=== PATIENT | female | born 1985 | race Two or more races ===

== ENCOUNTER 2018-07-30 01:07 | Emergency (ER) | payer SELFPAY ==
[~2018-07-30] VITALS: Ht 162.6 cm; Wt 49.9 kg
[2018-07-30 02:04] VITALS: BP 142/91
[2018-07-30] MEDS ORDERED: KETOROLAC 15 MG/ML VIAL. IM ONE (02:45)
--- NOTE | 2018-07-30 03:18 | RAD ---
Left wrist 3 views 07/30/2018. Reason for exam: Pain and swelling. No history of injury is given. No fracture or dislocation is seen. There is no apparent joint narrowing or destructive process. IMPRESSION: No apparent abnormality. Electronically signed by: Chandrakant Chi Jr., MD (07/30/2018 3:14 AM) [facility]
--- NOTE | 2018-07-30 03:32 | RAD ---
Ultrasound venous system of the left upper extremity 07/30/2018. Reason for exam: Arm and hand pain and swelling. Possible DVT. Color Doppler and spectral waveform analysis was performed along with real-time grayscale technique. The deep veins of the left upper extremity show normal Doppler flow and augmentation of flow and are normally compressible in their accessible segments. The basilic and cephalic veins also appear patent, as do the radial and ulnar veins in the forearm and the internal jugular vein in the neck. IMPRESSION: No evidence of venous thrombosis. Electronically signed by: Chandrakant Chi Jr., MD (07/30/2018 3:28 AM) [facility]
[2018-07-30] MEDS ORDERED: MELO7.5T29 PO (03:37)
[2018-07-30] MEDS ORDERED: TRAM50TA PO (03:37)
--- NOTE | 2018-07-30 03:38 | PHYS DOC ---
Past Medical History Past Medical History: Kidney Stone, UTI Past Surgical History: No Surgical History Alcohol Use: Occasionally Drug Use: None Adult General Chief Complaint Chief Complaint: UPPER EXTREMITY INJURY HPI HPI Patient is a 33 year old female who presents with left arm pain and swelling localized to the wrist. This is been present for the past one to 2 weeks. No trauma. Reports numbness in all 5 fingers. Increased pain with movement. No trauma. No known DVT/PE risk factors. No difficulty breathing. Nothing seems to make the discomfort better or worse except movement, Makes it worse. [] Review of Systems Review of Systems Constitutional: Denies fever or chills [] Eyes: Denies change in visual acuity, redness, or eye pain [] HENT: Denies nasal congestion or sore throat [] Respiratory: Denies cough or shortness of breath [] Cardiovascular: No chest pain or palpitations[] GI: Denies abdominal pain, nausea, vomiting, bloody stools or diarrhea [] : Denies dysuria or hematuria [] Musculoskeletal: See history of present illness[] Integument: Denies rash or skin lesions [] Neurologic: Denies headache, focal weakness or sensory changes [] Endocrine: Denies polyuria or polydipsia [] All other systems were reviewed and found to be within normal limits, except as documented in this note. Current Medications Current Medications Current Medications Medications (Trade) Dose Ordered Sig/Heaven Start Time Stop Time Status Last Admin Dose Admin Ketorolac Tromethamine (Toradol 15mg Vial) 15 mg 1X ONCE 07/30/18 02:45 07/30/18 02:46 DC 07/30/18 02:52 15 MG Allergies Allergies Allergies Coded Allergies Type Severity Reaction Last Updated Verified No Known Drug Allergies 07/30/18 No Physical Exam Physical Exam Constitutional: Well developed, well nourished, no acute distress, non-toxic appearance. [] HENT: Normocephalic, atraumatic, bilateral external ears normal, oropharynx moist, no oral exudates, nose normal. [] Eyes: PERRLA, EOMI, conjunctiva normal, no discharge. [] Neck: Normal range of motion, no tenderness, supple, no stridor. [] Cardiovascular:Heart rate regular rhythm, no murmur [] Lungs & Thorax: Bilateral breath sounds clear to auscultation [] Abdomen: Bowel sounds normal, soft, no tenderness, no masses, no pulsatile masses. [] Skin: Warm, dry, no erythema, no rash. [] Back: No tenderness, no CVA tenderness. [] Extremities: Tenderness is present in the left wrist region diffusely, no snuffbox tenderness, full active range of motion, no significant edema is appreciated when compared to the right side, 2 point discrimination is less than 5 mm, FDS, FDP, extensor mechanisms as well as opposition is all intact.[] Neurologic: Alert and oriented X 3, normal motor function, normal sensory function, no focal deficits noted. [] Psychologic: Affect normal, judgement normal, mood normal. [] Current Patient Data Vital Signs Vital Signs Date Time Temp Pulse Resp B/P (MAP) Pulse Ox O2 Delivery O2 Flow Rate FiO2 07/30/18 02:04 97.6 87 20 142/91 (108) 99 Room Air 97.6 EKG EKG [] Radiology/Procedures Radiology/Procedures X-ray of the left wrist is negative Ultrasound of the left upper extremity is negative for evidence of a DVT[] Course & Med Decision Making Course & Med Decision Making Pertinent Labs and Imaging studies reviewed. (See chart for details) ED course: Patient arrived, was placed in bed, tolerated exam well. After return of the imaging findings these were discussed with the patient who voiced understanding. All questions were answered. Patient was discharged in improved condition. Medical decision making: There is no evidence of fracture, dislocation, neurovascular compromise, DVT, nor infectious process.[] Dragon Disclaimer Dragon Disclaimer This electronic medical record was generated, in whole or in part, using a voice recognition dictation system. Departure Departure Impression: Primary Impression: Left wrist pain Disposition: 01 HOME, SELF-CARE Condition: GOOD Referrals: NO PCP (PCP) Patient Instructions: Wrist Pain Additional Instructions: Follow-up with your regular doctor. If you do not have regular doctor list of local low-cost clinics will be provided for you. Return to the ER if worsening pain or any other concerns. Scripts Tramadol Hcl (TRAMADOL HCL) 50 Mg Tablet 50 MG PO Q6HRS PRN for PAIN, #20 TAB Prov: CARLYLE LARA DO 07/30/18 Meloxicam (MELOXICAM) 7.5 Mg Tablet 7.5 MG PO DAILY, #20 TAB Prov: CARLYLE LARA DO 07/30/18 CARLYLE LARA DO Jul 30, 2018 03:38
== END 2018-07-30 03:48 | disposition home or self-care (01) ==
LOC: ER 01:07
DX: M25.532 Pain in left wrist (principal); M79.89 Other specified soft tissue disorders
CPT/HCPCS: 73110; 93971; 96372; 99284; J1885

== ENCOUNTER 2020-03-28 19:41 | Inpatient (IN) | payer SELFPAY ==
[~2020-03-28] VITALS: Ht 147.3 cm; Wt 64.0 kg
[~2020-03-28 19:41] MED LIST: MELO7.5T29 PO; TRAM50TA PO
[2020-03-28] MEDS ORDERED: BUTORPHANOL 2 MG/ML VIAL. IVP PRN (20:00)
[2020-03-28] MEDS ORDERED: fentaNYL PF VIAL 100 MCG/2 ML VIAL IVP PRN (20:00)
[2020-03-28] MEDS ORDERED: 0.9 % SODIUM CHLORIDE 10 ML DISP.SYRIN. IV PRN (20:00)
[2020-03-28] MEDS ORDERED: ONDANSETRON PF 4 MG/2 ML VIAL. IVP PRN (20:00)
[2020-03-28] MEDS ORDERED: CITRIC ACID/SODIUM CITRATE 30 ML SOLUTION. PO PRN (20:00)
[2020-03-28] MEDS ORDERED: LIDOCAINE 1% PF 30 ML VIAL. INJ PRN (20:00)
[2020-03-28] MEDS ORDERED: ACETAMINOPHEN 325 MG TABLET. PO PRN (20:00)
[2020-03-28] MEDS ORDERED: OXYTOCIN 30 UNIT/500 ML PREMIX 500 ML IV PRN (20:00)
[2020-03-28] MEDS ORDERED: IBUPROFEN 400 MG TABLET. PO PRN (20:00)
[2020-03-28] MEDS ORDERED: TERBUTALINE 1 MG/ML VIAL. SQ PRN (20:00)
--- NOTE | 2020-03-28 20:00 | NUR ---
Scheduled with [facility] 03/28/20, 40 weeks gestation presents for an induction.
[2020-03-28] MEDS ORDERED: DINOPROSTONE 10 MG SUPP.VAG VG ONE (20:30)
[2020-03-28 20:45] LABS: BASO # 0.1 x10^3/uL (0.0-0.2); BASO % 1 % (0-3); EOS % 0 % (0-3); HEMATOCRIT 35.3 % (36.0-47.0); HEMOGLOBIN 11.9 g/dL (12.0-15.5); LYMPH # 1.5 x10^3/uL (1.0-4.8); LYMPH % 30 % (24-48); MEAN CORPUSCULAR HEMOGLOBIN 28 pg (25-35); MEAN CORPUSCULAR HGB CONC 34 g/dL (31-37); MEAN CORPUSCULAR VOLUME 83 fL (79-100); MONO # 0.3 x10^3/uL (0.0-1.1); MONO % 6 % (0-9); NEUT # 3.1 x10^3/uL (1.8-7.7); NEUT % 62 % (31-73); PLATELET COUNT 174 x10^3/uL (140-400); RED BLOOD COUNT 4.26 x10^6/uL (3.50-5.40)
[2020-03-28] MEDS: IV RINGERS,LACTATED 1000ML 1,000 ML IV SCH (20:52)
[2020-03-29] VITALS (30 sets, daily range): BP systolic 75–142; BP diastolic 48–87
[2020-03-29] MEDS ORDERED: PENICILLIN G K 5,000,000 UNIT in IV DEXTROSE 5% 100ML 100 ML IV ONE (04:30)
[2020-03-29] MEDS ORDERED: OXYTOCIN PREMIX 30 UNIT/500 ML NS BAG. IV ONE (06:00)
[2020-03-29] MEDS ORDERED: OXYTOCIN 30 UNIT/500 ML PREMIX 500 ML IV PRN ×2 (06:00→08:15)
[2020-03-29] MEDS ORDERED: SUCCINYLCHOLINE 200 MG/10 ML VIAL. ONE (06:39)
[2020-03-29] MEDS ORDERED: PHENYLEPHRINE in 0.9% NACL PF 1 MG/10 ML SYRINGE. IV ONE (06:39)
[2020-03-29] MEDS ORDERED: ePHEDrine PF IN SALINE 50 MG/10 ML SYRINGE. IV ONE (06:39)
[2020-03-29] MEDS ORDERED: PROPOFOL 10 MG/ML (20ML) VIAL. IV ONE (06:39)
[2020-03-29] MEDS ORDERED: fentaNYL PF VIAL 100 MCG/2 ML VIAL ONE (06:40)
[2020-03-29] MEDS ORDERED: ceFAZolin 2GM PREMIX 2 GM/50 ML BAG IV ONE (07:00)
[2020-03-29] MEDS ORDERED: MORPHINE SULFATE 10 MG/ML VIAL. ONE (07:15)
[2020-03-29] MEDS ORDERED: 0.9 % SODIUM CHLORIDE 20 ML VIAL. IJ ONE (07:16)
--- NOTE | 2020-03-29 07:48 | PDOC1 ---
OB - History Hx of Present Care: Good Care Ultrasounds: Normal mid trimester US Obstetrical Complications: None Medical Complications: None Other Concerns: GBS positive and Covid positive Past Family/Social History * Past Medical, Surgical, Family and Obstetric Histories reviewed from chart. Rubella: Immune RPR/VDRL: Negative GBS Status: Positive HBsAG: Negative OB - Chief Complaint & HPI Date of Admission: Date of Admission: Mar 28, 2020 at 19:41 Chief Complaint/History : 2 Para: 1 EGA: 39 Reason for admission: induction of labor Indication for induction: maternal discomfort Admission Nurse Assessment Rev: Yes OB - Admission Exam Physical Exam Vitals: VS - Last 72 Hours, by Label Date Time Temp Pulse Resp B/P (MAP) Pulse Ox O2 Delivery O2 Flow Rate FiO2 03/29/20 06:45 85 134/86 HEENT: Normal Heart: Regular Rate Lungs: Clear Abdomen: Gravid, Non tender, Soft Extremities: Edema Reflexes: Normal Cervical Dilatation: Fingertip Effacement: 25% Station: -3 Membranes: Intact Heart Rate: Normal Accelerations: Accelerations Present Decelerations: No decelerations Contractions on Admission: None Text A: 40 wks IUP GBS positive Covid positive P: IOL cervidil, then pitocin in am. JOCELYN SMITH Jr, MD Mar 29, 2020 07:47
[2020-03-29] MEDS ORDERED: IV NORMAL SALINE 1000ML BAG 1,000 ML IV SCH (08:04)
--- NOTE | 2020-03-29 08:04 | PDOC4 ---
OB Operative Note Date: Mar 29, 2020 PRE OP DIAGNOSIS: NRFHT OPERATION PERFORMED: [facility] Surgeon Dr. Varela Anesthesia: Gen Blood Loss 900 ml Specimen placenta and infant OB Findings: Position (Vertex), Sex (Male), (8/9), Weight (2375 Gram) Complications none JOCELYN VARELA Jr, MD Mar 29, 2020 08:04
[2020-03-29] MEDS ORDERED: ZOLPIDEM 5 MG TABLET. PO PRN (08:15)
[2020-03-29] MEDS ORDERED: diphenhydrAMINE ORAL ELIXIR 12.5 MG/5 ML ML PO PRN (08:15)
[2020-03-29] MEDS ORDERED: 0.9 % SODIUM CHLORIDE 10 ML DISP.SYRIN. IV PRN (08:15)
[2020-03-29] MEDS ORDERED: ONDANSETRON PF 4 MG/2 ML VIAL. IV PRN (08:15)
[2020-03-29] MEDS ORDERED: NALOXONE 0.4 MG/ML VIAL. IV PRN (08:15)
[2020-03-29] MEDS ORDERED: IBUPROFEN 400 MG TABLET. PO PRN (08:15)
[2020-03-29] MEDS ORDERED: DOCUSATE SODIUM 100 MG CAPSULE. PO PRN (08:15)
[2020-03-29] MEDS ORDERED: MAG HYDROX/ALUMINUM HYD/SIMETH 30 ML ORAL.SUSP PO PRN (08:15)
[2020-03-29] MEDS ORDERED: SIMETHICONE 80 MG TAB.CHEW PO PRN (08:15)
[2020-03-29] MEDS ORDERED: PENICILLIN G K 2,500,000 UNIT in IV DEXTROSE 5% 50 ML IV SCH (08:30)
[2020-03-29] MEDS ORDERED: PRENATAL MULTIVITAMIN TABLET. PO SCH (09:00)
--- NOTE | 2020-03-29 10:13 | OP ---
DATE OF SURGERY: PREOPERATIVE DIAGNOSES: 1. Forty weeks' intrauterine . 2. Induction of labor secondary to post-term. 3. GBS positive. 4. COVID positive. 5. intolerance to labor. POSTOPERATIVE DIAGNOSES: 1. Forty weeks' intrauterine . 2. Induction of labor secondary to post-term. 3. GBS positive. 4. COVID positive. 5. intolerance to labor. PROCEDURE: Primary low transverse section. SURGEON: Jocelyn Varela MD ANESTHESIA: GETA. ESTIMATED BLOOD LOSS: 900 mL. COMPLICATIONS: None. FINDINGS: Viable male infant, Apgars 8 and 9, weight 2375 grams. Three-vessel cord placenta delivered manually. Mild uterine atony, which 800 mcg of Cytotec placed intrauterine. SUMMARY: A 34-year-old 2, para 1 at 40 weeks, presented for induction of labor secondary to post-term. With Cervidil in place, the patient had 2 bradycardic episodes which the Cervidil was removed. The patient then began having repetitive decelerations, which she required emergent section. She was counseled on the risks, benefits and expectations and voiced clear understanding to proceed. DESCRIPTION OF PROCEDURE: The patient was taken to surgery suite, placed in dorsal supine position. She was prepped with ChloraPrep and draped in sterile fashion. After adequate anesthesia, Pfannenstiel skin incision was made with scalpel down to and through the fascia. Fascia was extended laterally using curved Lennon scissors. The superior edge of the fascia was grasped with 2 Saurabh clamps, dissected free of the abdominal rectus muscles using blunt dissection along with curved Lennon scissors. The same process took place inferiorly. Abdominal rectus muscles were dissected bluntly at the midline. Peritoneum was grasped with 2 hemostats and entered sharply with Metzenbaum scissors. Incision was extended superiorly as well as inferiorly. The Real ring retractor was placed. Low transverse hysterotomy incision was made with scalpel down to and through the amniotic sac. Hysterotomy incision was extended laterally and superiorly digitally. With the aid of fundal pressure, the 's head was delivered in a smooth atraumatic manner. With additional fundal pressure, the anterior shoulder was delivered followed by posterior shoulder and rest of male was delivered. The infant was suctioned with bulb syringe orally and nasally, umbilical cord was clamped twice and cut and viable male was handed to waiting nursing staff. Umbilical cord was then obtained along with arterial pH. Three-vessel cord placenta was delivered manually intact. The uterus was then exteriorized and cleared of clot and debris with a moist lap. Hysterotomy incision was reapproximated using #1 Vicryl suture in running locked fashion and imbricated layer of #1 Vicryl suture was utilized for better hemostasis in a running fashion. 800 mcg of Cytotec was placed intrauterine prior to closure of the hysterotomy incision. The uterus then palpated firm. Fallopian tubes and ovaries appeared normal bilaterally. Posterior cul-de-sac was cleared of clot and debris with moist lap. The uterus was then returned to the abdomen. The pericolic gutters were cleared of clot and debris with moist lap. Hysterotomy incision was reviewed and was hemostatic. The Real ring retractor was removed. The peritoneum was reapproximated using #1 Vicryl suture in running fashion. Abdominal rectus muscles were reapproximated using #1 Vicryl suture in an interrupted fashion. Fascia was reapproximated using 0 Vicryl suture in running fashion. Skin was reapproximated using 4-0 Vicryl suture in subcuticular manner. The patient tolerated the procedure well and was taken to recovery room in stable condition. Sponge and needle count correct x 3. JOCELYN VARELA MD DR: LOREN/winsome JOB#: [id number] / [id number]
[2020-03-29] MEDS: IV RINGERS,LACTATED 1000ML 1,000 ML IV SCH ×2 (10:48→12:10)
--- NOTE | 2020-03-29 11:50 | NUR ---
At approximately 1150 this am, this RN called and informed him of pt. VS, urine output, pain, and comfort. MD gave orders for this RN to get a STAT H&H, flush and re-adjust blake catheter if needed, and administer 30mg of IV Toradol.
[2020-03-29 12:14] LABS: HEMATOCRIT 24.2 % (36.0-47.0); HEMOGLOBIN 7.9 g/dL (12.0-15.5); RED BLOOD COUNT 2.85 x10^6/uL (3.50-5.40); RED CELL DISTRIBUTION WIDTH 14.6 % (11.5-14.5); WHITE BLOOD COUNT 13.6 x10^3/uL (4.0-11.0)
--- NOTE | 2020-03-29 12:15 | NUR ---
At approximately 1215 this RN spoke with MD about pt. VS, urine output, fundal assessment, fluid intake, and pain. Orders received to give another IV BOLUS of 500ml.
[2020-03-29] MEDS: KETOROLAC 30 MG/ML VIAL. IV PRN (12:16)
--- NOTE | 2020-03-29 12:25 | NUR ---
At approximately 1225 this RN called MD to inform him of VS, pain, and H&H lab results. Orders received to stop fluid bolus and run IV fluids TKO. Orders received to administer 2 units of PRBC.
--- NOTE | 2020-03-29 14:30 | NUR ---
At approximately 1430 MD called for update on pt. MD updated on pt. VS, fundal assessment, urine output, pain, and blood transfusion start. Orders received to repeat STAT H&H 4 hours after second bag of PRBC is infused.
--- NOTE | 2020-03-29 16:08 | NUR ---
At approximately 1608 MD called about pt. assessment, VS, abdominal distention, pain, urine output, fundal assessment, and blood transfusion status. Orders received to bladder scan pt. and replace blake catheter.
--- NOTE | 2020-03-29 16:40 | NUR ---
At approximately 1640 MD came to pt. room for update. MD updated on bladder scan reading of 199ml, blake catheter replacement, and urine output. At this time MD also updated on pt. assessment including abdomen, VS, pain, bleeding and fundal assessment. Orders received for STAT CT of abd/pelvis with contrast.
[2020-03-29] MEDS ORDERED: FERROUS SULFATE 325 MG TABLET. PO SCH (17:00)
--- NOTE | 2020-03-29 17:00 | NUR ---
informed of CT scan results.
[2020-03-29] MEDS ORDERED: IOHEXOL 300 MG/ML 100ML VIAL. IV ONE (17:30)
--- NOTE | 2020-03-29 17:50 | NUR ---
Pt. taken to CT via bed with 2 RN assist.
--- NOTE | 2020-03-29 18:25 | NUR ---
MD in room to assess pt. after CT scan. Orders received for STAT H&H.
--- NOTE | 2020-03-29 18:40 | RAD ---
Exam: CT of abdomen and pelvis without and with contrast INDICATION: Postop, abdominal distention TECHNIQUE: Sequential axial images through the abdomen and pelvis obtained before and after the administration of 75 mL of Omni 300 IV contrast. Arterial and venous phase were obtained. Sagittal and coronal reformatted images were reconstructed from the axial data and reviewed. Comparisons: None FINDINGS: Heart size is normal. No pericardial effusion. Trace bilateral pleural effusions. Otherwise, visualized lung bases are clear. Liver, spleen, pancreas, gallbladder and adrenals are unremarkable. No perinephric inflammation or hydronephrosis. Kidneys demonstrate symmetric enhancement. No renal or ureteral calculi are identified. Bladder is decompressed not well evaluated. Uterus is enlarged with a post gravid appearance. There is fluid and debris noted within the endometrial cavity. Small to moderate amount of hemorrhage is noted within the anterior peritoneum of the pelvis. No evidence for active extravasation is identified. Hematoma measures approximately 13 cm in craniocaudal dimension and approximately 12.4 x 5.5 cm in greatest axial dimension. There is a small amount of free air noted within the abdomen. Small amount of free fluid is noted predominantly in the right paracolic gutter. Large and small bowel are unremarkable. Appendix is normal. No obstruction. Abdominal aorta has a normal course and caliber. Abdominal vasculature is patent. No enlarged abdominal lymph nodes are identified. IMPRESSION: 1. Moderate amount of hemorrhage noted in the anterior peritoneum measuring approximately 12.5 x 5.5 x 13 cm. No active extravasation is identified. 2. Post gravid appearance of the uterus with fluid and air noted within the endometrial cavity. This may be within normal limits given recent . Consider follow-up imaging with ultrasound to ensure resolution. 3. Small amount of free air seen in the abdomen. This is likely within normal limits for recent surgery. No inflammatory changes of bowel to suggest bowel perforation or injury. Exposure: One or more of the following in the visualized dose reduction techniques were utilized for this examination: 1. Automated exposure control 2. Adjustment of the MA and/or KV according to patient size 3. Use of iterative of reconstructive technique FOR INTERNAL CODING PURPOSES Critical result: Findings discussed with Danielle Choudhary RN at 03/29/2020 6:31 PM. RESULT CODE: (C) Electronically signed by: Ciara Turpin MD (03/29/2020 6:37 PM) [id number]
[2020-03-29 18:56] LABS: HEMATOCRIT 27.8 % (36.0-47.0); HEMOGLOBIN 9.4 g/dL (12.0-15.5); RED BLOOD COUNT 3.21 x10^6/uL (3.50-5.40); RED CELL DISTRIBUTION WIDTH 16.8 % (11.5-14.5); WHITE BLOOD COUNT 14.4 x10^3/uL (4.0-11.0)
[2020-03-29 19:54] LABS: CALCIUM 7.9 mg/dL (8.5-10.1); GFR 64.3; POTASSIUM 4.7 mmol/L (3.5-5.1)
[2020-03-29 20:00] LABS: ALBUMIN 1.8 g/dL (3.4-5.0); ALBUMIN/GLOBULIN RATIO 0.6 (1.0-1.7); TOTAL BILIRUBIN 0.4 mg/dL (0.2-1.0)
--- NOTE | 2020-03-29 21:50 | NUR ---
Used language line to answer questions from patient. At this time she complained of uncontrolled pain. Gave patient a bolus dose on her drapery hand. Patient communicated that it brought her pain down to a 2. Patient is resting in bed. Nurse is bedside.
[2020-03-30 01:22] VITALS: BP 120/86
[2020-03-30 01:23] LABS: HEMATOCRIT 29.2 % (36.0-47.0); HEMOGLOBIN 10.3 g/dL (12.0-15.5); RED BLOOD COUNT 3.41 x10^6/uL (3.50-5.40); RED CELL DISTRIBUTION WIDTH 15.6 % (11.5-14.5); WHITE BLOOD COUNT 9.6 x10^3/uL (4.0-11.0)
[2020-03-30 01:34] LABS: CALCIUM 7.6 mg/dL (8.5-10.1); GFR 64.3; POTASSIUM 4.1 mmol/L (3.5-5.1)
[2020-03-30] MEDS: KETOROLAC 30 MG/ML VIAL. IV PRN ×2 (01:34→15:10)
[2020-03-30 05:48] VITALS: BP 105/67
[2020-03-30 05:49] LABS: BASO % 0 % (0-3); EOS % 0 % (0-3); HEMATOCRIT 28.3 % (36.0-47.0); HEMOGLOBIN 9.7 g/dL (12.0-15.5); LYMPH % 23 % (24-48); MEAN CORPUSCULAR HEMOGLOBIN 30 pg (25-35); MEAN CORPUSCULAR HGB CONC 34 g/dL (31-37); MEAN CORPUSCULAR VOLUME 87 fL (79-100); MONO # 0.5 x10^3/uL (0.0-1.1); MONO % 6 % (0-9); NEUT # 6.3 x10^3/uL (1.8-7.7); NEUT % 71 % (31-73); PLATELET COUNT 168 x10^3/uL (140-400); RED BLOOD COUNT 3.26 x10^6/uL (3.50-5.40); RED CELL DISTRIBUTION WIDTH 15.7 % (11.5-14.5); WHITE BLOOD COUNT 8.9 x10^3/uL (4.0-11.0)
--- NOTE | 2020-03-30 11:47 | PDOC ---
OB Progress Note Date of Service 03/29/20 Time of Evaluation 1145 Notes Pt. feeling better. Pain better controlled. Hematoma stable. Lab Laboratory Tests Test 03/28/20 20:30 03/28/20 20:50 03/29/20 11:58 03/29/20 18:39 White Blood Count 5.0 x10^3/uL (4.0-11.0) 13.6 x10^3/uL (4.0-11.0) 14.4 x10^3/uL (4.0-11.0) Red Blood Count 4.26 x10^6/uL (3.50-5.40) 2.85 x10^6/uL (3.50-5.40) 3.21 x10^6/uL (3.50-5.40) Hemoglobin 11.9 g/dL (12.0-15.5) 7.9 g/dL (12.0-15.5) 9.4 g/dL (12.0-15.5) Hematocrit 35.3 % (36.0-47.0) 24.2 % (36.0-47.0) 27.8 % (36.0-47.0) Mean Corpuscular Volume 83 fL (79-100) 85 fL (79-100) 87 fL (79-100) Mean Corpuscular Hemoglobin 28 pg (25-35) 28 pg (25-35) 29 pg (25-35) Mean Corpuscular Hemoglobin Concent 34 g/dL (31-37) 33 g/dL (31-37) 34 g/dL (31-37) Red Cell Distribution Width 15.0 % (11.5-14.5) 14.6 % (11.5-14.5) 16.8 % (11.5-14.5) Platelet Count 174 x10^3/uL (140-400) 203 x10^3/uL (140-400) 200 x10^3/uL (140-400) Neutrophils (%) (Auto) 62 % (31-73) Lymphocytes (%) (Auto) 30 % (24-48) Monocytes (%) (Auto) 6 % (0-9) Eosinophils (%) (Auto) 0 % (0-3) Basophils (%) (Auto) 1 % (0-3) Neutrophils # (Auto) 3.1 x10^3/uL (1.8-7.7) Lymphocytes # (Auto) 1.5 x10^3/uL (1.0-4.8) Monocytes # (Auto) 0.3 x10^3/uL (0.0-1.1) Eosinophils # (Auto) 0.0 x10^3/uL (0.0-0.7) Basophils # (Auto) 0.1 x10^3/uL (0.0-0.2) Treponema pallidum Antibody Nonreactive (Nonreactive) SARS-CoV-2 Antigen (Rapid) Positive (NEGATIVE) Test 03/29/20 19:40 03/30/20 01:10 03/30/20 05:25 Sodium Level 137 mmol/L (136-145) 137 mmol/L (136-145) Potassium Level 4.7 mmol/L (3.5-5.1) 4.1 mmol/L (3.5-5.1) Chloride Level 103 mmol/L (98-107) 103 mmol/L (98-107) Carbon Dioxide Level 26 mmol/L (21-32) 28 mmol/L (21-32) Anion Gap 8 (6-14) 6 (6-14) Blood Urea Nitrogen 12 mg/dL (7-20) 14 mg/dL (7-20) Creatinine 1.0 mg/dL (0.6-1.0) 1.0 mg/dL (0.6-1.0) Estimated GFR (Cockcroft-Gault) 64.3 64.3 BUN/Creatinine Ratio 12 (6-20) Glucose Level 86 mg/dL (70-99) 74 mg/dL (70-99) Calcium Level 7.9 mg/dL (8.5-10.1) 7.6 mg/dL (8.5-10.1) Total Bilirubin 0.4 mg/dL (0.2-1.0) Aspartate Amino Transf (AST/SGOT) 84 U/L (15-37) Alanine Aminotransferase (ALT/SGPT) 37 U/L (14-59) Alkaline Phosphatase 188 U/L (46-116) Total Protein 5.0 g/dL (6.4-8.2) Albumin 1.8 g/dL (3.4-5.0) Albumin/Globulin Ratio 0.6 (1.0-1.7) White Blood Count 9.6 x10^3/uL (4.0-11.0) 8.9 x10^3/uL (4.0-11.0) Red Blood Count 3.41 x10^6/uL (3.50-5.40) 3.26 x10^6/uL (3.50-5.40) Hemoglobin 10.3 g/dL (12.0-15.5) 9.7 g/dL (12.0-15.5) Hematocrit 29.2 % (36.0-47.0) 28.3 % (36.0-47.0) Mean Corpuscular Volume 86 fL (79-100) 87 fL (79-100) Mean Corpuscular Hemoglobin 30 pg (25-35) 30 pg (25-35) Mean Corpuscular Hemoglobin Concent 35 g/dL (31-37) 34 g/dL (31-37) Red Cell Distribution Width 15.6 % (11.5-14.5) 15.7 % (11.5-14.5) Platelet Count 173 x10^3/uL (140-400) 168 x10^3/uL (140-400) Neutrophils (%) (Auto) 71 % (31-73) Lymphocytes (%) (Auto) 23 % (24-48) Monocytes (%) (Auto) 6 % (0-9) Eosinophils (%) (Auto) 0 % (0-3) Basophils (%) (Auto) 0 % (0-3) Neutrophils # (Auto) 6.3 x10^3/uL (1.8-7.7) Lymphocytes # (Auto) 2.0 x10^3/uL (1.0-4.8) Monocytes # (Auto) 0.5 x10^3/uL (0.0-1.1) Eosinophils # (Auto) 0.0 x10^3/uL (0.0-0.7) Basophils # (Auto) 0.0 x10^3/uL (0.0-0.2) Laboratory Tests Test 03/29/20 11:58 03/29/20 18:39 03/29/20 19:40 03/30/20 01:10 White Blood Count 13.6 x10^3/uL (4.0-11.0) 14.4 x10^3/uL (4.0-11.0) 9.6 x10^3/uL (4.0-11.0) Red Blood Count 2.85 x10^6/uL (3.50-5.40) 3.21 x10^6/uL (3.50-5.40) 3.41 x10^6/uL (3.50-5.40) Hemoglobin 7.9 g/dL (12.0-15.5) 9.4 g/dL (12.0-15.5) 10.3 g/dL (12.0-15.5) Hematocrit 24.2 % (36.0-47.0) 27.8 % (36.0-47.0) 29.2 % (36.0-47.0) Mean Corpuscular Volume 85 fL (79-100) 87 fL (79-100) 86 fL (79-100) Mean Corpuscular Hemoglobin 28 pg (25-35) 29 pg (25-35) 30 pg (25-35) Mean Corpuscular Hemoglobin Concent 33 g/dL (31-37) 34 g/dL (31-37) 35 g/dL (31-37) Red Cell Distribution Width 14.6 % (11.5-14.5) 16.8 % (11.5-14.5) 15.6 % (11.5-14.5) Platelet Count 203 x10^3/uL (140-400) 200 x10^3/uL (140-400) 173 x10^3/uL (140-400) Sodium Level 137 mmol/L (136-145) 137 mmol/L (136-145) Potassium Level 4.7 mmol/L (3.5-5.1) 4.1 mmol/L (3.5-5.1) Chloride Level 103 mmol/L (98-107) 103 mmol/L (98-107) Carbon Dioxide Level 26 mmol/L (21-32) 28 mmol/L (21-32) Anion Gap 8 (6-14) 6 (6-14) Blood Urea Nitrogen 12 mg/dL (7-20) 14 mg/dL (7-20) Creatinine 1.0 mg/dL (0.6-1.0) 1.0 mg/dL (0.6-1.0) Estimated GFR (Cockcroft-Gault) 64.3 64.3 BUN/Creatinine Ratio 12 (6-20) Glucose Level 86 mg/dL (70-99) 74 mg/dL (70-99) Calcium Level 7.9 mg/dL (8.5-10.1) 7.6 mg/dL (8.5-10.1) Total Bilirubin 0.4 mg/dL (0.2-1.0) Aspartate Amino Transf (AST/SGOT) 84 U/L (15-37) Alanine Aminotransferase (ALT/SGPT) 37 U/L (14-59) Alkaline Phosphatase 188 U/L (46-116) Total Protein 5.0 g/dL (6.4-8.2) Albumin 1.8 g/dL (3.4-5.0) Albumin/Globulin Ratio 0.6 (1.0-1.7) Test 03/30/20 05:25 White Blood Count 8.9 x10^3/uL (4.0-11.0) Red Blood Count 3.26 x10^6/uL (3.50-5.40) Hemoglobin 9.7 g/dL (12.0-15.5) Hematocrit 28.3 % (36.0-47.0) Mean Corpuscular Volume 87 fL (79-100) Mean Corpuscular Hemoglobin 30 pg (25-35) Mean Corpuscular Hemoglobin Concent 34 g/dL (31-37) Red Cell Distribution Width 15.7 % (11.5-14.5) Platelet Count 168 x10^3/uL (140-400) Neutrophils (%) (Auto) 71 % (31-73) Lymphocytes (%) (Auto) 23 % (24-48) Monocytes (%) (Auto) 6 % (0-9) Eosinophils (%) (Auto) 0 % (0-3) Basophils (%) (Auto) 0 % (0-3) Neutrophils # (Auto) 6.3 x10^3/uL (1.8-7.7) Lymphocytes # (Auto) 2.0 x10^3/uL (1.0-4.8) Monocytes # (Auto) 0.5 x10^3/uL (0.0-1.1) Eosinophils # (Auto) 0.0 x10^3/uL (0.0-0.7) Basophils # (Auto) 0.0 x10^3/uL (0.0-0.2) Medications Current Medications Sodium Chloride (Normal Saline Flush) 3 ml QSHIFT PRN IV AFTER MEDS AND BLOOD DRAWS; Start 03/28/20 at 20:00 Ringer's Solution 1,000 ml @ 125 mls/hr Q8H IV Last administered on 03/29/20at 12:10; Start 03/28/20 at 19:48 Butorphanol Tartrate (Stadol) 2 mg PRN Q1HR PRN IVP Severe labor pain; Start 03/28/20 at 20:00 Fentanyl Citrate (Fentanyl 2ml Vial) 100 mcg PRN Q30MIN PRN IVP Severe pain; Start 03/28/20 at 20:00 Acetaminophen (Tylenol) 1,000 mg PRN Q6HRS PRN PO MILD PAIN / TEMP > 100.3'F Last administered on 03/29/20at 19:20; Start 03/28/20 at 20:00 Ondansetron HCl (Zofran) 4 mg PRN Q4HRS PRN IVP NAUSEA/VOMITING; Start 03/28/20 at 20:00 Citric Acid/ Sodium Citrate (Bicitra) 30 ml 1X PRN PRN PO DYSPEPSIA Last administered on 03/29/20at 06:45; Start 03/28/20 at 20:00; Stop 03/29/20 at 19:59; Status DC Terbutaline Sulfate (Brethine) 0.25 mg 1X PRN PRN SQ SEE COMMENTS Last administered on 03/29/20at 06:45; Start 03/28/20 at 20:00; Stop 03/29/20 at 19:59; Status DC Lidocaine HCl (Xylocaine 1% Pf 30ml Vial) 30 ml 1X PRN PRN INJ SEE COMMENTS; Start 03/28/20 at 20:00; Stop 03/30/20 at 19:59 Oxytocin/Sodium Chloride 500 ml @ 0 mls/hr CONT PRN IV SEE I/O RECORD; Start 03/29/20 at 06:00 Oxytocin/Sodium Chloride 500 ml @ 0 mls/hr CONT PRN PRN IV Post delivery bleeding; Start 03/28/20 at 20:00 Ibuprofen (Motrin) 800 mg PRN Q6HRS PRN PO PAIN; Start 03/28/20 at 20:00 Penicillin G Potassium [id number] unit/Dextrose 100 ml @ 100 mls/hr 1X ONCE IV Last administered on 03/29/20at 04:40; Start 03/29/20 at 04:30; Stop 03/29/20 at 05:29; Status DC Penicillin G Potassium [id number] unit/Dextrose 50 ml @ 100 mls/hr Q4H IV ; Start 03/29/20 at 08:30 Dinoprostone (Cervidil) 10 mg 1X ONCE VG Last administered on 03/28/20at 20:38; Start 03/28/20 at 20:30; Stop 03/28/20 at 20:31; Status DC Cefazolin Sodium/ Dextrose 50 ml @ 100 mls/hr 1X ONCE IV ; Start 03/29/20 at 06:30; Stop 03/29/20 at 06:59; Status DC Propofol (Diprivan) 200 mg STK-MED ONCE IV ; Start 03/29/20 at 06:39; Stop 03/29/20 at 06:39; Status DC Phenylephrine HCl (PHENYLEPHRINE in 0.9% NACL PF) 1 mg STK-MED ONCE IV ; Start 03/29/20 at 06:39; Stop 03/29/20 at 06:39; Status DC Ephedrine Sulfate (ePHEDrine PF IN SALINE SYRINGE) 50 mg STK-MED ONCE IV ; Start 03/29/20 at 06:39; Stop 03/29/20 at 06:39; Status DC Succinylcholine Chloride (Anectine) 200 mg STK-MED ONCE .ROUTE ; Start 03/29/20 at 06:39; Stop 03/29/20 at 06:39; Status DC Fentanyl Citrate (Fentanyl 2ml Vial) 100 mcg STK-MED ONCE .ROUTE ; Start 03/29/20 at 06:40; Stop 03/29/20 at 06:40; Status DC Morphine Sulfate (Morphine Sulfate) 10 mg STK-MED ONCE .ROUTE ; Start 03/29/20 at 07:15; Stop 03/29/20 at 07:15; Status DC Sodium Chloride (SODIUM CHLORIDE 20ml) 20 ml STK-MED ONCE IJ ; Start 03/29/20 at 07:16; Stop 03/29/20 at 07:16; Status DC Sodium Chloride (Normal Saline Flush) 3 ml QSHIFT PRN IV AFTER MEDS AND BLOOD DRAWS; Start 03/29/20 at 08:15 Oxytocin/Sodium Chloride 500 ml @ 125 mls/hr CONT PRN IV EXCESSIVE POST- BLEEDING; Start 03/29/20 at 08:15; Stop 03/29/20 at 16:14; Status DC Ibuprofen (Motrin) 800 mg PRN Q8HRS PRN PO INFLAMMATION; Start 03/29/20 at 08:15 Ondansetron HCl (Zofran) 4 mg PRN Q6HRS PRN IV NAUSEA/VOMITING; Start 03/29/20 at 08:15 Docusate Sodium (Colace) 100 mg PRN BID PRN PO HARD STOOL; Start 03/29/20 at 08:15 Al Hydroxide/Mg Hydroxide (Mylanta Plus Xs) 30 ml PRN Q4HRS PRN PO HEARTBURN / GAS; Start 03/29/20 at 08:15 Simethicone (Gas-X) 80 mg PRN AFTMEALHC PRN PO GAS / BLOATING; Start 03/29/20 at 08:15 Diphenhydramine HCl (Benadryl Oral Elixir) 12.5 mg PRN Q6HRS PRN PO ITCHING; Start 03/29/20 at 08:15 Ferrous Sulfate (Feosol) 325 mg BIDWMEALS PO ; Start 03/29/20 at 17:00 Zolpidem Tartrate (Ambien) 5 mg PRN QHS PRN PO INSOMNIA, MAY REPEAT X1; Start 03/29/20 at 08:15 Oxycodone/ Acetaminophen (Percocet 5/325) 2 tab PRN Q4HRS PRN PO MODERATE PAIN, SEVERE PAIN; Start 03/29/20 at 08:15 Ketorolac Tromethamine (Toradol 30mg Vial) 30 mg PRN Q6HRS PRN IV PAIN Last administered on 03/30/20at 01:34; Start 03/29/20 at 08:15; Stop 04/03/20 at 08:14 Multivit/ Folic Acid/Iron (Multivitamin ) 1 tab DAILY PO ; Start 03/29/20 at 09:00 Fentanyl Citrate 30 ml @ 0 mls/hr CONT PRN PRN IV PER PROTOCOL Last administered on 03/29/20at 12:10; Start 03/29/20 at 08:15 Naloxone HCl (Narcan) 0.4 mg PRN Q2MIN PRN IV SEE INSTRUCTIONS; Start 03/29/20 at 08:15 Sodium Chloride 1,000 ml @ 25 mls/hr Q24H IV ; Start 03/29/20 at 08:04 Oxytocin/Sodium Chloride (Oxytocin Premix Infusion) 30 unit STK-MED ONCE IV ; Start 03/29/20 at 06:00; Stop 03/29/20 at 08:30; Status DC Iohexol (Omnipaque 300 Mg/ml) 75 ml 1X ONCE IV Last administered on 03/29/20at 17:30; Start 03/29/20 at 17:30; Stop 03/29/20 at 17:31; Status DC Active Scripts Active Tramadol Hcl 50 Mg Tablet 50 Mg PO Q6HRS PRN Meloxicam 7.5 Mg Tablet 7.5 Mg PO DAILY Exam Abd: soft, moderate tenderness, fundus firm Incision site: clean, dry and intact Assessment POD#1 s/p c/s Post hematoma Covid positive: asymptomatic Plan of Care: Continue current Tx, Mgmt (Advance diet and start PO pain medication.) JOCELYN SMITH Jr, MD Mar 30, 2020 11:47
[2020-03-30 11:52] VITALS: BP 108/67
[2020-03-30 15:00] VITALS: BP 119/68
[2020-03-30 21:00] VITALS: BP 146/91
[2020-03-30] MEDS: oxyCODONE/APAP 5/325 1 TAB TABLET PO PRN (21:00)
[2020-03-30 23:50] VITALS: BP 126/89
[2020-03-31 04:40] VITALS: BP 119/80
[2020-03-31] MEDS: oxyCODONE/APAP 5/325 1 TAB TABLET PO PRN ×2 (04:54→14:53)
[2020-03-31 09:50] VITALS: BP 116/68
--- NOTE | 2020-03-31 11:49 | PDOC3 ---
OB DISCHARGE SUMMARY DATE OF ADMISSION: 03/28/20 DATE OF DISCHARGE: 03/31/20 REASON FOR ADMISSION: Induction of labor INTRAPARTUM PROCEDURES: : Low Cerv Trans DISCHARGE DIAGNOSIS: Term Delivered, Others (abd hematoma) DISCHARGE INFORMATION: Activity (ad moustapha), Diet (regular), Instructions (pelvic rest x 6 wks, no driving x 2 wks, no lifting > 20 lbs. x 6 wks, Self quarentine x 2 wks) HOSPITAL COURSE Term gestation delivered via emergent section. She had post wound hematoma that is stable. JOCELYN SMITH Jr, MD Mar 31, 2020 11:49
[2020-03-31] MEDS ORDERED: IBUP-1027 PO (11:53)
[2020-03-31] MEDS ORDERED: DOCU-153 PO (11:53)
[2020-03-31] MEDS ORDERED: FERR325T72 PO (11:53)
[2020-03-31] MEDS ORDERED: OXYC1TAB15 PO (11:53)
--- NOTE | 2020-03-31 11:53 | DISCH ---
DISCHARGE INSTRUCTIONS Condition on Discharge Condition on Discharge: Stable Activity After Discharge Activity Instructions for Disc: Activity as tolerated Lifting Instructions after Dis: No heavy lifting Driving Instructions after Dis: No driving for 2 weeks Diet after Discharge Diet after Discharge: Regular Contacting the [facility]aun after DC Call your doctor for: If your condition worsens Follow-Up Follow up with: Dr. Varela in 2 weeks. JOCELYN VARELA Jr, MD Mar 31, 2020 11:53
--- NOTE | 2020-03-31 14:00 | NUR ---
Discharge instructions given to pt via [facility] specialist #[id number]. Pt verbalized understanding denied any questions. Pt discharged home
[2020-03-31 14:35] VITALS: BP 140/85
--- NOTE | 2020-04-04 18:06 | PATHOLOGY ---
[facility] Accession Number: [id number] . 01 Material submitted: . placenta - PLACENTA AND CORD . 01 Clinical history: . POSITIVE FOR COVID, EDC 03/28/2020, 40.1 WEEKS ; Non-reassuring status; GBS positive . 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 - Villitis of unknown etiology, patchy. - Accessory lobes (2). (JPM:ayo; 04/04/2020) S 04/04/2020 1730 Local . 02 Comment: There is no evidence of an acute chorioamnionitis. (JPM:ayo; 04/04/2020) . 02 Electronically signed: . Narinder Mcguire MD, Pathologist NPI- [id number] . 01 Gross description: . The specimen is received in formalin, labeled "Kena Adame, placenta". Received is a sigala placenta with attached membranes and umbilical cord with a trimmed placental weight of 466 g and measuring 16.2 x 13.8 x 3.2 cm in greatest dimensions. There are also two accessory lobes present measuring 2.5 x 2.2 x 0.6 and 7.7 x 5.8 x 2.2 cm. The membranes are pink-hansen and translucent in appearance, and the site of membrane rupture is 7.8 cm from the placental margin. The surface is intact displaying a normal arborizing vasculature pattern. The vessels extend from the surface onto each accessory lobe. The trivascular umbilical cord measures 22.7 cm in length by up to 2.2 cm in diameter and inserts centrally, 6.4 cm from the closest placental margin. The umbilical cord is pale diaz to blue-hansen in appearance with minimal to moderate helical twisting. The maternal surface is intact and complete with a slight amount of overlying calcifications; a slight amount of adherent blood coagulum is seen on the surface. Sectioning reveals red-brown cut surfaces displaying six pale diaz to orange-diaz lesions ranging in size from 0.5 to 1.8 cm, which encompass 5-10% of the total placental volume of the main disc. Sectioning through the two accessory lobes reveals red-brown cut surfaces with no grossly distinct nodules or lesions. The specimen is submitted representatively as follows: . A1 proximal umbilical cord and surface vessels A2 umbilical cord and membrane roll A3-A6 equal opportunity representative sections of each lesion A7-A8 equal opportunity representative sections of maternal surface A9-A10 equal opportunity representative sections from each accessory lobe. (CAA; 04/01/2020) QA/[facility] 04/04/2020 1413 Local . 02 Pathologist provided ICD-10: U07.1, Z3A.40, O82 . 02 CPT . 730879 Specimen Comment: A courtesy copy of this report has been sent to [phone] Specimen Comment: Report sent to Performed at: 01 [facility] [address], [place] [id number] MD Jerel Pierre MD Phone: [phone] Performed at: 02 [facility] [address], [place] [id number] MD Narinder Mcguire MD Phone: [phone]
== END 2020-03-31 15:04 | disposition home or self-care (01) | DRG 786 ==
LOC: 3 SO LND 19:41
PROVIDERS: ADMIT Obstetrics & Gynecology; ATTEND Obstetrics & Gynecology
PROC: 10D00Z1 Extraction of Products of Conception, Low, Open Approach (ICD-10-PCS; principal; 2020-03-29)
PROC: 30233N1 Transfusion of Nonautologous Red Blood Cells into Peripheral Vein, Percutaneous Approach (ICD-10-PCS; 2020-03-29)
DX: O98.52 Other viral diseases complicating childbirth (principal); U07.1 COVID-19; O99.824 Streptococcus B carrier state complicating childbirth; O76 Abnormality in fetal heart rate and rhythm complicating labor and delivery; O62.2 Other uterine inertia; O48.0 Post-term pregnancy; O90.2 Hematoma of obstetric wound; Z3A.40 40 weeks gestation of pregnancy; Z37.0 Single live birth
CPT/HCPCS: 36415; 74178; 80048; 80053; 85025; 85027; 86592; 86850; 86900; 86901; 86920; 87426; 88307; 99285; J0330; J0690; J1885; J2270; J2370; J2540; J2590; J2704; J3010; J3105; J7060; J7120; P9016; Q9967; G0378